=== PATIENT | female | born 1975 | race Caucasian/White ===

== ENCOUNTER → 2017-06-02 | Outpatient (CLI) | payer OTHER ==
[~2017-06-02] MED LIST: MEDROL 4MG. DOSE4 MG PO
--- NOTE | 2017-06-10 12:26 | RADIOLOGY REPORT PS360 ---
DIG MAMM-SCREEN LUCY W/CAD CAD Screening ORDERING PHYSICIAN : Prashanth Melendez MD PATIENT AGE: 41 years GENDER: Female COMPARISON: Previous mammograms: April INDICATION: Routine screening 41-year-old. No new complaints Questionable History states taking female hormones? But Also states IUD. Correlation required. Family history. Noncontributory. TECHNIQUE: Standard CC and MLO images were obtained. R2 CAD reviewed. Additional MLO view for IMF FINDINGS: Moderate breast density scattered moderate fibroglandular elements bilaterally... Overall stable mild asymmetry. The glandular elements most evident extending from behind nipple towards upper-outer quadrant. There is very slight accentuation of the glandular elements since previous studies which could reflect a exogenous hormones or latter phase of menstrual cycle. Overall Similar parenchymal pattern to previous study with no dominant mass nor suspicious calcification nor architectural distortion With this I believe follow-up in one year the adequate IMPRESSION: .. stable bilateral mammogram with no significant new findings Follow-up in one year recommended and should be encouraged BI-RADS CATEGORY: 2_Benign RECOMMENDED FOLLOWUP: 12M 12 MONTH FOLLOW-UP (A letter has been sent to the patient regarding results of the study.) ..
== END ==
LOC: RAD 09:00
DX: Z12.31 Encounter for screening mammogram for malignant neoplasm of breast (principal)
CPT/HCPCS: G0202

== ENCOUNTER → 2017-06-04 | Outpatient (CLI) | payer OTHER | LOC: LAB 09:37 | DX: D50.9 Iron deficiency anemia, unspecified (principal); E11.9 Type 2 diabetes mellitus without complications; E03.9 Hypothyroidism, unspecified ==

== ENCOUNTER → 2017-07-24 | Outpatient (CLI) | payer OTHER | LOC: LAB 16:08 | DX: R13.10 Dysphagia, unspecified (principal) ==

== ENCOUNTER 2017-07-27 07:41 | Day surgery (SDC) | payer OTHER ==
[~2017-07-27] VITALS: Ht 167.6 cm; Wt 104.3 kg
--- NOTE | 2017-07-27 08:39 | Operative Note ---
Upper GI Endoscopy Procedure date: 07/27/17 Date of : 73 Procedure:Upper GI Endoscopy Esophagogastroduodenoscopy with cold biopsies and TTS balloon dilation Indications: Mrs. Weems is a 41-year-old female status post gastric bypass 13 years ago. Recently she has had symptoms of dysphagia and globus sensation. This occurs with rice, meats and maria m hair pasta. The patient does state this improves with omeprazole. She does have some hard swallowing and throat discomfort. She reports no heartburn, burping, indigestion or epigastric abdominal discomfort. She reports some mild bloating. Performing Provider: Dale Strauss MD Referring Provider: Felipe Manning M.D. Sedation: MAC sedation Procedure: Prior to the procedure, a history and physical exam was performed, and patients medications and allergies were reviewed. The risks and benefits of the procedure and the sedation options and risks were discussed with the patient. All questions were answered and informed consent was obtained. The patient was brought to the procedure room. Patient identification and proposed procedure were verified by the physician and the nurse. The patient was placed in a left lateral decubitus position and the scope was passed under direct vision. Throughout the procedure, the patient's blood pressure, pulse, and oxygen saturations were monitored continuously. The endoscope was introduced through the mouth, and advanced to the second part of duodenum. The upper GI endoscopy was accomplished without difficulty. The patient tolerated the procedure well. Findings: The scope was advanced directly into the upper esophagus and passed to the efferent limb of the jejunum. This was normal with some mucoid exudate. The scope was withdrawn to the stomal anastomosis and afferent limb which was a short stump. The gastric pouch and stomal anastomosis was normal. Cold biopsies were taken from the pouch itself. The scope was withdrawn into the esophagus. There was a very small sliding 1-2 cm hiatal hernia. There was a distal ring/ Schatzki's ring distally that was dilated to 60 Lithuanian/20 mm with a TTS hydrostatic balloon. There was mild esophageal dysmotility. The entire esophagus was dilated to 20 mm with some mild cricopharyngeal spasm. Immediate complications: None EBL (ml): 0 Impression: 1. Schatzki's ring dilated to 20 mm 2. Cricopharyngeal spasm with mild esophageal dysmotility and very small 1-2 cm sliding hiatal hernia 3. Normal Zay-en-Y gastric bypass anatomy Recommendations: I would continue omeprazole on a maintenance basis. I will discuss the findings with the patient and family and follow-up the biopsies. at 0812
[2017-07-27 10:32] VITALS: BP 109/70
== END 2017-07-27 09:58 | disposition home or self-care (01) ==
LOC: SDC 07:41
PROVIDERS: Internal Medicine Gastroenterology
PROC: 0D758ZZ Dilation of Esophagus, Via Natural or Artificial Opening Endoscopic (ICD-10-PCS; 2017-07-27)
PROC: 0DB68ZX Excision of Stomach, Via Natural or Artificial Opening Endoscopic, Diagnostic (ICD-10-PCS; principal; 2017-07-27 08:30)
DX: K22.2 Esophageal obstruction (principal); K44.9 Diaphragmatic hernia without obstruction or gangrene; Z98.84 Bariatric surgery status; K22.4 Dyskinesia of esophagus
CPT/HCPCS: C1726